=== PATIENT | male | born 1975 | race Caucasian/White ===

== ENCOUNTER 2018-08-19 20:21 | Emergency (ER) | payer OTHER ==
[2018-08-19] MEDS ORDERED: IBUPROFEN 600 MG TAB PO ONE (20:43)
--- NOTE | 2018-08-19 21:25 | EDPHY ---
H & P Time Seen by Provider: 08/19/18 20:35 HPI/ROS: This patient sustained an injury to his right shoulder playing recreational league soccer trying to defend against the player their feet got tangled up patient fell hard on his right shoulder heard a pop felt a pop with pain and swelling. He also reports that he slammed his head into the grass and felt briefly dazed. He saw stars for a few seconds as well. He feels that the feeling of being dazed resolved within a minute or 2. He reports a mild headache prior to arrival that he feels is now resolved. His drove him here by private vehicle for evaluation of these injuries. The shoulder pain is 4/10 at baseline and worsens with movement with no other exacerbating factors. He has not taken any medications for his injuries prior to arrival. ROS: Neuro: No focal numbness tingling weakness. No confusion. No vision changes. Musculoskeletal: No midline neck or back pain. Pulmonary: No chest wall pain or shortness of breath GI: No abdominal pain. No nausea or vomiting : No hematuria Integumentary: No lacerations or abrasions 7 point ROS is otherwise negative besides what is mentioned as pertinent positives or negatives in HPI and ROS. Past Medical/Surgical History: Otherwise healthy Smoking Status: Never smoked Physical Exam: Physical exam: Vital signs are normal General: Patient is in no acute distress. HEENT: Is no external evidence of trauma on exam. Nose atraumatic. Ears: Clear bilaterally with no hemotympanum. Oropharynx: No dental trauma or malocclusion. No intraoral lacerations. Eyes: Pupils are equal and reactive to light. Extraocular motions are intact. Optic fundi: Clear with no papilledema or hemorrhage. Neck: Trachea is midline with no stridor. The patient has no midline neck tenderness and retains a full range of motion without increase in pain. Lungs: Clear to auscultation bilaterally Cardiac: Regular rate and rhythm no murmur gallop or rub. Chest: Nontender. Abdomen: Soft nontender no organomegaly Back: Nontender Extremities: Atraumatic except for right shoulder Right shoulder: Patient has obvious swelling and tenderness to the proximal humerus right shoulder. No clavicle swelling or tenderness no AC joint tenderness. No gross deformity. No elbow or wrist tenderness Neuro: GCS of 15. Cranial nerves II through XII intact. 2 out of 3 five- minute memory is intact. Cerebellar exam is normal as judged by symmetric rapid hand movements bilaterally. No pronator drift. No sensory or motor deficits are appreciated. No retrograde amnesia Initial differential diagnosis: Proximal humerus fracture, doubt shoulder dislocation, rotator cuff injury, concussion, doubt cerebral contusion or other more significant head injury Constitutional: Initial Vital Signs Temperature (C) 36.7 C 08/19/18 20:34 Heart Rate 58 L 08/19/18 20:34 Respiratory Rate 16 08/19/18 20:34 Blood Pressure 131/86 H 08/19/18 20:34 O2 Sat (%) 99 08/19/18 20:34 O2 Delivery Mode Room Air Allergies/Adverse Reactions: No Known Allergies Allergy (Verified 08/19/18 20:34) Home Medications: Medication Instructions Recorded Miscellaneous Medical Supply [NO 1 ea MISC AD 04/27/13 HOME MEDS] traMADol [Ultram 50 mg (*)] 50 - 100 mg PO Q4 PRN #20 tab 08/19/18 MDM/Departure - MDM Diagnostics: Shoulder x-rays: Proximal transverse humerus fracture and greater tuberosity fracture mildly displaced by my interpretation Imaging Results: Imaging Impressions Shoulder X-Ray 08/19/18 20:43 Impression: 1. Acute nondisplaced surgical neck fracture. 2. Acute minimally displaced greater tuberosity fracture. Medications Given: Discontinued Medications Ibuprofen (Motrin) 600 mg PO EDNOW ONE Stop: 08/19/18 20:44 Last Admin: 08/19/18 20:54 Dose: 600 mg Tramadol HCl (Ultram) 100 mg PO EDNOW ONE Stop: 08/19/18 21:41 Last Admin: 08/19/18 21:46 Dose: 100 mg ED Course/Re-evaluation: Patient placed in a sling. Ice Ibuprofen p.o. Patient declined other analgesics while here I spoke with Harry, mid-level practitioner for Dr. Grady who reviewed the x- rays agrees with plan of sling and close follow up with Dr. Grady early this coming week on Thursday or Thursday Discussion: Patient with concussion without LOC without clinical findings that would suggest intracranial bleed or other red flag findings. Humerus fracture which may be manage either conservatively or ORIF pending conversation with Orthopedics but neurovascularly intact without open fracture or other emergent findings. Patient understands need to return should he develop numbness to the affected arm, unbearable pain, unbearable headache, confusion or other concerns - Depart Disposition: Home, Routine, Self-Care Clinical Impression: Proximal humerus fracture Qualifiers: Encounter type: initial encounter Fracture type: closed Fracture morphology: unspecified fracture morphology Laterality: right Qualified Code(s): S42.201A - Unspecified fracture of upper end of right humerus, initial encounter for closed fracture Greater tuberosity of humerus fracture Qualifiers: Encounter type: initial encounter Fracture type: closed Fracture alignment: displaced Laterality: right Qualified Code(s): S42.251A - Displaced fracture of greater tuberosity of right humerus, initial encounter for closed fracture Concussion Qualifiers: Encounter type: initial encounter Loss of consciousness presence/duration: without LOC Qualified Code(s): S06.0X0A - Concussion without loss of consciousness, initial encounter Condition: Good Instructions: Concussion (ED), Proximal Humerus Fracture (ED) Additional Instructions: Diagnosis: Proximal humerus fracture with greater tuberosity fracture of humerus 2. Concussion without loss of consciousness Plan: Sling Ice Ibuprofen Tylenol for pain control-406 100 mg of ibuprofen per 6 hr not to exceed 24 mg in 24 hr and 650-1000 mg of Tylenol per 4 hr not to exceed 3000 mg in 24 hr Tramadol in addition if needed for pain. No driving, alcohol work on tramadol. Call Dr. Grady office tomorrow to make a follow-up appointment for Thursday or Thursday In terms of your head injury, no work tomorrow. Limit your activity in terms of anything that but she risk for head injury until 7 days after resolution of her current symptoms. Return to the emergency department for unbearable headache, vomiting more than once, confusion, unbearable arm pain, numbness to the arm or other concerns. Stand Alone Forms: Work Excuse Prescriptions: traMADol [Ultram 50 mg (*)] 50 - 100 mg PO Q4 PRN #20 tab PRN Reason: breakthrough pain Referrals: NONE *PRIMARY CARE P,. [Primary Care Provider] - As per Instructions Dante Grady MD [Medical Doctor] - As per Instructions
[2018-08-19] MEDS ORDERED: traMADol 50 MG TAB PO ONE (21:40)
[2018-08-19 22:00] VITALS: BP 123/71
== END 2018-08-19 21:50 | disposition home or self-care (01) ==
LOC: CED 20:21
DX: S06.0X0A Concussion without loss of consciousness, initial encounter (principal); S42.251A Displaced fracture of greater tuberosity of right humerus, initial encounter for closed fracture; W22.8XXA Striking against or struck by other objects, initial encounter; Y92.322 Soccer field as the place of occurrence of the external cause; Y93.66 Activity, soccer
CPT/HCPCS: 73030-PO; A4565